=== PATIENT | male | born 1980 | race Caucasian/White ===

== ENCOUNTER → 2020-02-11 | Emergency (ER) | payer MEDICAID, OTHER ==
[~2020-02-11] VITALS: Ht 167.6 cm; Wt 72.6 kg
[~2020-02-11] MED LIST: FLUORESCEIN SOD 1 MG TEST STRIP LEFTEYE ONE; TETRACAINE HCL 0.5% OPTH(EYE) SOLN 4ML LEFTEYE ONE
[2020-02-11 21:09] VITALS: BP 123/71
== END | disposition left against medical advice (07) ==
LOC: ER 20:44
DX: H57.12 Ocular pain, left eye (principal); Z53.21 Procedure and treatment not carried out due to patient leaving prior to being seen by health care provider

== ENCOUNTER 2020-03-04 17:47 | Emergency (ER) | payer MEDICAID ==
[~2020-03-04] VITALS: Ht 167.6 cm; Wt 63.5 kg
[2020-03-04 20:57] VITALS: BP 130/78
== END 2020-03-04 21:39 | disposition home or self-care (01) ==
LOC: ER 17:47
DX: S81.812A Laceration without foreign body, left lower leg, initial encounter (principal); W26.8XXA Contact with other sharp object(s), not elsewhere classified, initial encounter; Y93.89 Activity, other specified; Y92.89 Other specified places as the place of occurrence of the external cause; Y99.8 Other external cause status
CPT/HCPCS: 12002; 99283; J2001

== ENCOUNTER 2021-03-24 17:03 | Emergency (ER) | payer MEDICAID ==
[~2021-03-24] VITALS: Ht 167.6 cm; Wt 77.1 kg
[2021-03-24 17:05] VITALS: BP 115/73
== END 2021-03-24 20:45 | disposition left against medical advice (07) ==
LOC: ER 17:03
DX: R07.89 Other chest pain (principal); R51.9 Headache, unspecified; Z53.21 Procedure and treatment not carried out due to patient leaving prior to being seen by health care provider
CPT/HCPCS: 71045; 93005

== ENCOUNTER 2021-03-27 21:36 | Emergency (ER) | payer MEDICAID ==
[~2021-03-27] VITALS: Ht 167.6 cm; Wt 70.3 kg
[2021-03-27] MEDS ORDERED: DexAMETHasone 4 MG TAB PO ONE (23:15)
[2021-03-27] MEDS ORDERED: ALBUTEROL SULF 2.5 MG/0.5ML(0.5%) NEB SOLN NEB ONE (23:15)
[2021-03-27] MEDS ORDERED: IPRATROPIUM BROM 0.5 MG/2.5ML INH SOL NEB ONE (23:15)
[2021-03-28 02:54] VITALS: BP 132/71
== END 2021-03-28 03:05 | disposition home or self-care (01) ==
LOC: ER 21:38
DX: J68.0 Bronchitis and pneumonitis due to chemicals, gases, fumes and vapors (principal); F17.210 Nicotine dependence, cigarettes, uncomplicated
CPT/HCPCS: 71045; 93005; 94640; 99285; J7644; J8540